=== PATIENT | male | born 1990 | race Caucasian/White ===

== ENCOUNTER 2020-09-23 12:07 | Emergency (ER) | payer BC, SELFPAY ==
--- NOTE | ~2020-09-23 | XR_ITS ---
XR abdomen/kub 1V DATE: 09/23/2020 13:31 INDICATION: Abdominal bloating, umbilical pressure. Cramping. Diarrhea. TECHNIQUE: 2 supine AP views COMPARISON: None FINDINGS: There is gaseous distention of a dilated loop of proximal small bowel overlying the left mi d to upper abdomen, which may be due to adynamic ileus or small bowel obstruction. There is gaseous d istention of the stomach. The psoas shadows are intact. No visceromegaly or significant abnormal calcification is identified. IMPRESSION: Dilated proximal small bowel, which may be due to adynamic ileus or small bowel obstructi on. Consider CT abdomen pelvis examination Reviewed, dictated and finalized at [facility]. Reviewed, dictated and finalized at [facility]. IMPRESSION: Dilated proximal small bowel, which may be due to adynamic ileus or small bowel obstruction. Consider CT abdomen pelvis examination
--- NOTE | ~2020-09-23 | CT_ITS ---
EXAMINATION: CT abdomen pelvis w con DATE: 09/23/2020 13:55 INDICATION: Dilated small bowel suspicious for obstruction on prior KUB. TECHNIQUE: Computed tomography (CT) of the abdomen and pelvis was performed with 100 mL Omnipaque-350 intravenous contrast. Automated exposure control and iterative reconstruction technique were employe d. The dose-length product was 531.08 mGy-cm. COMPARISON: None FINDINGS: Lung bases are clear. Heart size is normal. No pericardial or pleural effusion. Liver, gallbladder, p ancreas, bilateral adrenal glands and kidneys are normal. Borderline splenomegaly measuring 13.4 cm i n maximal length. Normal appendix. Fluid throughout the proximal to mid colon consistent with diarrhe a. There are few dilated loops of proximal jejunum measuring up to 4.2 cm in maximal diameter. There is gradual decrease in caliber of the small bowel in the mid jejunum without a discrete transition po int to suggest obstruction. Bladder is normal. No free intraperitoneal gas or fluid. No pathologicall y enlarged abdominal or pelvic lymphadenopathy. Bones are unremarkable. IMPRESSION: 1. Mild dilation of a few loops of proximal jejunum which gradually decreases to normal caliber with no discrete transition point and favor ileus over early or partial small bowel obstruction. 2. Fluid-filled large and small bowel consistent with diarrhea. Correlate clinically for gastroenteri tis. 2. Nonspecific borderline splenomegaly. Reviewed, dictated and finalized at [facility]. IMPRESSION: 1. Mild dilation of a few loops of proximal jejunum which gradually decreases t o normal caliber with no discrete transition point and favor ileus over early o r partial small bowel obstruction. 2. Fluid-filled large and small bowel consistent with diarrhea. Correlate clini rancho for gastroenteritis. 2. Nonspecific borderline splenomegaly.
[2020-09-23 12:10] VITALS: BP 124/80; PULSE 121; RESP 18; TEMP 36.7; O2SAT 95
[2020-09-23 12:27] LABS: Basophils Percent Auto 0.4 % (0.2-1.2); Eosinophils Percent Auto 0.1 % (0-4.4); Hematocrit 45.4 % (42.0-52.0); Hemoglobin 15.5 g/dL (14.0-18.0); Immature Granulocyte Absolute 0.01 K/mm3 (0.00-0.031); Immature Granulocyte Percent A 0.1 % (0-0.5); Lymphocytes Absolute Auto 0.43 K/mm3 (0.9-3.2); Lymphocytes Percent Auto 5.3 % (18.3-44.2); Mean Corpuscular HGB Conc 34.1 g/dl (32-36); Mean Corpuscular Hemoglobin 27.5 pg (26-34); Mean Corpuscular Volume 80.5 fl (80-100); Mean Platelet Volume 10.5 fl (7.4-10.4); Monocytes Absolute Auto 0.6 K/mm3 (0.1-0.6); Monocytes Percent Auto 7.5 % (2.6-8.5); Neutrophils Percent Auto 86.6 % (45.5-73.1); Platelet Count Result 190 k/mm3 (150-375); Red Blood Count 5.64 M/mm3 (4.6-6.20); Red Cell Distribution Width 12.5 % (11.5-14.5); White Blood Count 8.1 K/mm3 (4.5-10.0)
[2020-09-23 12:37] LABS: Alanine Aminotransferase 19 U/L (4-50); Albumin Level 4.3 g/dL (3.5-5.1); Alkaline Phosphatase 57 U/L (38-126); Anion Gap 10 mmol/L (8-16); Aspartate Amino Transferase 23 U/L (17-59); Bilirubin,Total 0.4 mg/dL (0.2-1.3); Blood Urea Nitrogen 14 mg/dL (9-20); Calcium 8.7 mg/dL (8.4-10.2); Carbon Dioxide 22 mmol/L (22-30); Chloride 103 mmol/L (98-107); Estimated CRCL calculation 95 ml/min; Estimated Glomerular Filt Rate > 60; Glucose 120 mg/dL (75-110); Lipase 95 U/L (23-300); Potassium 3.9 mmol/L (3.4-5.0); Sodium 135 mmol/L (137-145)
--- NOTE | 2020-09-23 13:07 | ED.NAVMDI ---
HPI - Nausea/Vomiting/Diarrhea General Chief complaint: Nausea/Vomiting/Diarrhea Stated complaint: n/v/d Time Seen by Provider: 09/23/20 12:56 History of Present Illness HPI Narrative: 30 yo male w/ h/o anxiety presents to the ED for nausea, vomiting, and diarrhea. The symptoms started 4 days ago. He was initially having some abdominal cramping, this has mostly resolved. Yesterday thought he was doing better. Today he vomited agian and the was a small amount of bright red blood. No dark or bloody stools. No weakness, numbness, CP, SOB, dizziness. Related Data Home Medications Medication Instructions Recorded Confirmed escitalopram oxalate mg 09/23/20 Allergies Allergy/AdvReac Type Severity Reaction Status Date / Time No Known Allergies Allergy Verified 09/23/20 13:36 Review of Systems Review of Systems: All systems reviewed & are unremarkable except as noted in HPI and below Constitutional: Constitutional: Reports chills, Reports fever(s) (subjective) and Denies weakness Eyes: Eyes: Reports no additional eye complaints ENT: Reports system reviewed and no additional complaints, except as documented Cardiovascular: Cardiovascular: Denies chest pain Respiratory: Respiratory: Denies dyspnea Gastrointestinal: Gastrointestinal: Reports as per HPI Genitourinary: Genitourinary: Reports no additional male genitourinary complaints Neurologic: Reports as per HPI Psychiatric: Psychiatric: Reports anxiety [facility] Past Medical History Medical History Anxiety Social History Social History Gender identity (if verbalized by the patient): Male Exam Const: General: healthy appearing, no acute distress and alert Orientation/consciousness: patient oriented x3 HENMT: Head: normal to inspection Neck: Neck: normal visual inspection Resp: Effort & Inspection: normal respiratory effort Auscultation: clear to auscultation bilaterally, no rales, no rhonchi and no wheezes Cardio: Jugular venous distension: no JVD Rate: regular rate Rhythm: regular rhythm Heart sounds: no murmurs GI: Inspection: non-distended GI Palp: Yes Soft to palpation and No Tenderness to palpation present (GI) Skin: General skin exam: normal color Neuro: General: patient oriented x3 and moves all extremities Speech: normal speech Extrem: General: no edema Psych: Appearance: well kempt Affect: normal affect Course Vital Signs Vital signs: Vital Signs Temperature 36.7 C 09/23/20 12:10 Pulse Rate 121 H 09/23/20 12:10 Respiratory Rate 18 09/23/20 12:10 Blood Pressure 124/80 09/23/20 12:10 Pulse Oximetry 95 09/23/20 12:10 Temperature 36.7 C 09/23/20 12:10 Pulse Rate 104 H 09/23/20 14:27 Respiratory Rate 20 09/23/20 14:27 Blood Pressure 127/59 L 09/23/20 14:27 Pulse Oximetry 94 09/23/20 14:27 MDM - Nausea/Vomiting/Diarrhea MDM Narrative Medical decision making narrative: Non specific findings on KUB. CT suggestive of gastroenteritis with an ileus. Tolerating PO and feeling better after treatment. H/H stable. Blood was most likely due to forceful vomiting. Differential Diagnosis Differential diagnosis: Likely food poisoning, gastroenteritis, dehydration and other (IBS, adarsh spring tear, gastritis) Medical Records Attestation: I reviewed the patient's medical records. Lab Data Attestation: I reviewed the patient's lab results. Result diagrams: 09/23/20 12:18 09/23/20 12:18 Labs: Lab Results 09/23/20 09/23/20 09/23/20 Range/Units 12:18 12:18 12:55 WBC 8.1 (4.5-10.0) K/mm3 RBC 5.64 (4.6-6.20) M/mm3 Hgb 15.5 (14.0-18.0) g/dL Hct 45.4 (42.0-52.0) % MCV 80.5 (80-100) fl MCH 27.5 (26-34) pg MCHC 34.1 (32-36) g/dl RDW 12.5 (11.5-14.5) % Plt Count 190 (150-375) k/mm3 MPV 10.5 H (7.4-10.4) fl
[2020-09-23 13:19] LABS: Add Urine Microscopic? YES; Appearance Urine Clear (Clear); Bilirubin Urine Negative (Negative); Blood Urine Negative (Negative); Color Urine Yellow (Yellow); Glucose Urine UA Negative (Negative); Ketones Urine Negative (Negative); Leukocyte Esterase Ur Negative LEU/UL (Negative); Mucus Urine Rare /lpf; Nitrate Urine Negative (Negative); Protein Urine 1+ mg/dL (Negative); RBC Urine 0-2 /hpf (0-2); Urobilinogen Urine Negative mg/dL (<2.0); WBC Urine 0-3 /hpf
[2020-09-23 13:39] VITALS: BP 113/60; BP 117/78; BP 126/69; PULSE 109; PULSE 115; PULSE 120
[2020-09-23] MEDS: SODIUM CHLORIDE 0.9% IV 1,000 ML 999 ML IV CONT (13:46)
[2020-09-23] MEDS: ONDANSETRON INJ 4 MG/2 ML VIAL IV PUSH (13:46)
[2020-09-23] MEDS: METOCLOPRAMIDE HCL INJ 10 MG/2 ML VIAL IV PUSH (14:25)
[2020-09-23 14:27] VITALS: BP 127/59; PULSE 104; RESP 20; O2SAT 94
== END 2020-09-23 15:48 | disposition home or self-care (01) ==
PROVIDERS: Emergency Medicine; Emergency Provider Emergency Medicine; PCP Internal Medicine
DX: K56.7 Ileus, unspecified (principal)
CPT/HCPCS: 36415; 74018; 74177; 80053; 81001; 83690; 85025; 96361; 96374; 96375; 99284; J2405; J2765; J7030; Q9967

== ENCOUNTER 2023-04-11 17:09 | Emergency (ER) | payer BC, SELFPAY ==
[2023-04-11 17:21] VITALS: BP 141/80; PULSE 83; RESP 16; TEMP 36.4; O2SAT 100
--- NOTE | 2023-04-11 17:22 | ED.URI ---
HPI - URI/Sore Throat General Chief Complaint: Upper Respiratory Infection Stated Complaint: FEVER/SINUS PAIN/SORE THROAT History of Present Illness HPI Narrative: 33 y/o male presented for c/o sinus congestion, headache and sore throat for 3 days. States at the onset he had fever up to 100. Denies sob, wheezing, n/v/d. Symptoms improve temporarily with ibuprofen and antihistamine. Tested covid negative x2 since onset. Related Data Allergies Allergy/AdvReac Type Severity Reaction Status Date / Time montelukast [From Singulair] Allergy Mild Hallucinati Verified 04/11/23 17:19 ng Review of Systems Review of Systems: CONSTITUTIONAL: reports fever, chills, sweats. EYES: Denies visual changes, redness, or discharge. ENT: reports sore throat, rhinorrhea, congestion, denies otalgia. CARDIOVASCULAR: Denies chest pain, palpitations, or edema. RESPIRATORY: Denies dyspnea. GASTROINTESTINAL: Denies abdominal pain, nausea, vomiting, or diarrhea. SKIN: Denies rash, itching, or wounds. MUSCULOSKELETAL: Denies back pain, joint pain, or myalgia. 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 EYES: conjunctivae clear ENT: Mucous membranes moist. TMs pearly diop with normal light reflex bilaterally; no tragal tenderness. Oropharynx mildly erythematous without lesions. Tonsils 1+ and without exudate. No drooling, no hoarseness, no trismus, uvula midline. No tripod positioning, hot potato voice, or soft palate swelling. NECK: Supple. No lymphadenopathy CHEST: Clear to auscultation, breath sounds equal. No respiratory distress, speaks in full sentences. HEART: Regular rate and rhythm. No murmur heard. SKIN: Warm, dry, no rash. NEURO: Alert and oriented x3. Course Course Emergency Course: Patient is aware of diagnosis, understands and agrees to treatment plan. Anticipatory guidance given. Patient agrees to follow-up as directed and is aware of reasons to seek care at the emergency department. Portions of this record may have been created with voice recognition software Level of Care: Express Care Visit MDM - URI/Sore Throat MDM Narrative Medical decision making narrative: POS strep result reviewed with pt. Advise supportive treatments. Patient is appropriate for outpatient treatment and follow-up. Differential Diagnosis Differential diagnosis: Likely upper respiratory infection, viral infection and pharyngitis Discharge Plan Discharge Clinical Impression: Strep pharyngitis Patient Disposition: Home, Self-Care Condition: Stable Instructions: Antibiotic Form, Strep Throat (ED) Additional Instructions: - Take the antibiotic as directed. Fever and sore throat typically resolve within one to three days. Most patients can return to work, after 12 to 24 hours of antibiotic therapy, provided you are fever free and otherwise well. -Eat and drink things that are easy to swallow, like soft foods, cool liquids, tea with honey, or popsicles . -Salt water gargles and/or may use topical anesthetic ( Chloraseptic spray) or lozenges to relieve dryness or throat pain -Alternate Tylenol and ibuprofen as needed for pain and fever as directed. -Frequent hand washing or hand fire supervisor is one of the best ways to pre
== END 2023-04-11 17:38 | disposition home or self-care (01) ==
PROVIDERS: Emergency Provider Nurse Practitioner Family; PCP Internal Medicine
DX: J02.0 Streptococcal pharyngitis (principal); F41.9 Anxiety disorder, unspecified
CPT/HCPCS: 87804; 87880; 99213; G0463

== ENCOUNTER 2023-06-12 08:30 | Outpatient (CLI) | payer BC, SELFPAY ==
[2023-06-12 17:52] LABS: Basophils Percent Auto 0.6 % (0.2-1.2); Eosinophils Absolute Auto 0.1 K/mm3 (0-0.3); Eosinophils Percent Auto 1.9 % (0-4.4); Hematocrit 43.3 % (42.0-52.0); Hemoglobin 13.5 g/dL (14.0-18.0); Immature Granulocyte Absolute 0.02 K/mm3 (0.00-0.031); Immature Granulocyte Percent A 0.4 % (0-0.5); Lymphocytes Absolute Auto 1.19 K/mm3 (0.9-3.2); Mean Corpuscular HGB Conc 31.2 g/dl (32-36); Mean Corpuscular Hemoglobin 26.9 pg (26-34); Mean Corpuscular Volume 86.3 fl (80-100); Mean Platelet Volume 10.8 fl (7.4-10.4); Monocytes Absolute Auto 0.4 K/mm3 (0.1-0.6); Monocytes Percent Auto 6.7 % (2.6-8.5); Neutrophils Absolute Auto 3.7 K/mm3 (1.3-6.7); Neutrophils Percent Auto 68.4 % (45.5-73.1); Platelet Count Result 257 k/mm3 (150-375); Red Blood Count 5.02 M/mm3 (4.6-6.20); Red Cell Distribution Width 13.1 % (11.5-14.5); White Blood Count 5.4 K/mm3 (4.5-10.0)
[2023-06-12 19:12] LABS: Vitamin D 25 Hydroxy 44.4 ng/mL
[2023-06-12 19:17] LABS: Anion Gap 10 mmol/L (8-16); Bilirubin,Total 0.5 mg/dL (0.2-1.3); Blood Urea Nitrogen 17 mg/dL (9-20); Carbon Dioxide 28 mmol/L (22-30); Chloride 102 mmol/L (98-107); Estimated Glomerular Filt Rate > 60; Glucose 71 mg/dL (65-110); Potassium 4.3 mmol/L (3.4-5.0); Sodium 140 mmol/L (137-145)
[2023-06-12 19:18] LABS: Alanine Aminotransferase 44 U/L (6-50); Albumin Level 4.3 g/dL (3.5-5.1); Alkaline Phosphatase 59 U/L (38-126); Aspartate Amino Transferase 38 U/L (17-59); Cholesterol 229 mg/dL (0-200); HDL Direct 37 mg/dL; Triglycerides 199 mg/dL (<150)
[2023-06-12 19:29] LABS: LDL Cholesterol Direct 137 mg/dL
[2023-06-14 15:00] LABS: Apolipoprotein B 124 mg/dL (<90)
== END 2023-06-12 08:31 | disposition home or self-care (01) ==
LOC: ANHGOSHLAB 08:31
PROVIDERS: PCP Internal Medicine; Visit Provider Clinical Nurse Specialist
DX: E78.5 Hyperlipidemia, unspecified (principal); Z13.228 Encounter for screening for other metabolic disorders; E55.9 Vitamin D deficiency, unspecified; F41.9 Anxiety disorder, unspecified
CPT/HCPCS: 36415; 80053; 80061; 82172; 82306; 84443; 85025

== ENCOUNTER 2024-09-19 18:09 | Emergency (ER) | payer OTHER, BC, SELFPAY ==
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
[2024-09-19 18:13] VITALS: BP 119/79; PULSE 102; RESP 16; TEMP 36.8; O2SAT 97
--- OUTSIDE RECORDS SUMMARY | 2024-09-19 18:13 | XMS_ITS | Clinical Summary ---
Author Organization [facility] Address [address] [place] [address] Care Team Providers Care General Ii Farmworker Name Role Phone Rob Mcconnell MD Primary Care Provider [phone] Source Comments [facility],non-owned Affiliates and Associated Physician Practices is amultiple site organization consisting of ambulatory clinics and hospital sitesin [place], [place], [place] and [place]. This disclosure is being madepursuant to the Care Everywhere program and may not contain all information available regarding this patient. Last updated 18.[facility] Allergies Active Allergy Reactions Criticality Noted Date Comments Penicillins Vomiting 09/01/2016 Medications * Be aware that medications may not be up to date on this document. Alwaysverify current medications with the patient. No known medications Social History Tobacco Use Types Packs/Day Years Used Date Smoking Tobacco: Never Smokeless Tobacco: Never Sex and Gender Information Value Date Recorded Sex Assigned at Not on file Legal Sex Male 10:44 AM CDT Gender Identity Not on file Sexual Orientation Not on file Last Filed Vital Signs Vital Sign Reading Time Taken Comments Blood Pressure 112/76 06/12/2019 2:06 PM PLATE MAKER Pulse 110 06/12/2019 2:06 PM PLATE MAKER Temperature 38 C (100.4 F) 06/12/2019 2:06 PM PLATE MAKER Respiratory Rate 18 06/12/2019 2:06 PM PLATE MAKER Oxygen Saturation 96% 06/12/2019 2:06 PM PLATE MAKER Inhaled Oxygen Concentration - - Weight 87.5 kg (193 lb) 06/12/2019 2:06 PM PLATE MAKER Height 174 cm (5' 8.5 ) 06/12/2019 2:06 PM PLATE MAKER Body Mass Index 28.92 06/12/2019 2:06 PM PLATE MAKER Plan of Treatment Health Maintenance Due Date Last Done Comments HIV SCREENING 2004 HEPATITIS C SCREENING 03/18/2007 DTAP/TDAP/TD VACCINES (1 - Tdap) 2008 HEPATITIS B VACCINE (1 of 3 - 19+ 3-dose series) 2008 COVID-19 VACCINE (1 - 2023-2 5 season) 2024 DEPRESSION SCREENING 06/03/2024 INFLUENZA VACCINE (Season Ended) 2025 ZOSTER VACCINE (1 of 2) 2039 HIB VACCINE Aged Out No longer eligi ble based on patient's age to complete this topic HPV VACCINE Aged Out No longer eligi ble based on patient's age to complete this topic MENINGOCOCCAL (Group B) VACC INE SHARED DECISION-MAKING Aged Out No longer eligibl e based on patient's age to complete this topic MENINGOCOCCAL GROUPS A/C/Y/W VACCINE Aged Out No longer eligible b ased on patient's age to complete this topic PNEUMOCOCCAL VACCINE Aged Out No long er eligible based on patient's age to complete this topic Insurance [employer] Care Teams General Ii Farmworker Relationship Specialty Start Date End Date Rob Mcconnell MD PCP - General Internal Medicine 09/01/16
--- OUTSIDE RECORDS SUMMARY | 2024-09-19 18:13 | XMS_ITS | Continuity of Care Document ---
Author Organization [facility] Address [address] [place] [address] Phone Care Team Providers Care Wool Merchant Name Role Phone Inder Marquis MD Unavailable Unavailable Allergies, Adverse Reactions, Alerts Substance Reaction Status Criticality PENICILLIN Gastric Distress Active No Informat ion Medications Medication Instructions Dosage Effective Dates (start - stop) Status Comments No Drug Therapy Prescribed Procedures Procedure Date OFFICE/OUTPATIENT VISIT, [facility] IAAD EIA HEP B SURF AG HEPATITIS C ANTIBODY; HIV-1 Antigen, W/HIV-1 & HIV-2 Antibody, Single Re Advance Directives Directive Yes / No Effective Date File Name No Information Encounters Encounter Description Practice Location Reason(s) For Visit Diagnoses Date Provider Providers Copied on Encounter [facility] , [address], [place], [place], [id number], tel:[phone] Urgent Care No Information [facility]. [address], [place], [place], [id number], . tel:[phone] OFFICE/OUTPAT IENT VISIT, [facility] , [address], [place], [place], [address], tel:[phone] Urgent Care physical (chief complaint) Encounter for other administrative examinations No Information Family History Family Member Type Diagnosis Age At Onset No Information Payers Payer name Insurance type Covered alliance party ID Authoriza tion(s) [facility] CI [id number] Social History Type Description Quantity Date Captured Comments Sex Male Smoking Status No Information Chief Complaint And Reason For Visit No Information Reason For Referral Reason For Referral No Information History Of Present Illness Encounter Date Complaint History Of Prese nt Illness physical Men's preventive visit. here for wrestling physical Functional Status Date Functional Assessmen t No Information Medications Administered Medication Instructions Dosage Effective Dates (start - stop) Status Comments No Drug Therapy Prescribed Instructions Date Instruction Additional Infor mation No Information Assessments Type Assessment Date No Information Patient Care Teams Name Effective Dates (start - stop) Status Members No Information
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
--- OUTSIDE RECORDS SUMMARY | 2024-09-19 21:30 | XMS_ITS | Clinical Summary ---
Author Organization [facility] Address [address] [place] [address] Care Team Providers Care Coal Digger Name Role Phone Rob Mcconnell MD Primary Care Provider [phone] Source Comments [facility],non-owned Affiliates and Associated Physician Practices is amultiple site organization consisting of ambulatory clinics and hospital sitesin [place], [place], [place] and [place]. This disclosure is being madepursuant to the Care Everywhere program and may not contain all information available regarding this patient. Last updated 18.[facility] Allergies Active Allergy Reactions Criticality Noted Date [...] Comments Blood Pressure 112/76 06/12/2019 2:06 PM POURER OFF Pulse 110 06/12/2019 2:06 PM POURER OFF Temperature 38 C (100.4 F) 06/12/2019 2:06 PM POURER OFF Respiratory Rate 18 06/12/2019 2:06 PM POURER OFF Oxygen Saturation 96% 06/12/2019 2:06 PM POURER OFF Inhaled Oxygen Concentration - - Weight 87.5 kg (193 lb) 06/12/2019 2:06 PM POURER OFF Height 174 cm (5' 8.5 ) 06/12/2019 2:06 PM POURER OFF Body Mass Index 28.92 06/12/2019 2:06 PM POURER OFF Plan of Treatment Health Maintenance Due Date [...] complete this topic Insurance [employer] Care Teams Coal Digger Relationship Specialty Start Date End Date Rob Mcconnell MD PCP - General Internal Medicine 09/01/16
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
[2024-09-19 22:14] VITALS: BP 126/80; PULSE 92; RESP 16; TEMP 36.7; O2SAT 98
== END 2024-09-19 22:14 | disposition home or self-care (01) ==
LOC: ANHED 21:28
PROVIDERS: Emergency Provider Emergency Medicine; PCP Internal Medicine
DX: S09.90XA Unspecified injury of head, initial encounter (principal); S16.1XXA Strain of muscle, fascia and tendon at neck level, initial encounter; V89.2XXA Person injured in unspecified motor-vehicle accident, traffic, initial encounter; W22.11XA Striking against or struck by driver side automobile airbag, initial encounter
CPT/HCPCS: 70450; 72125; 99284

== ENCOUNTER 2024-09-21 12:27 | Outpatient (CLI) | payer BC, SELFPAY ==
--- NOTE | ~2024-09-21 | XR_ITS ---
Clinical Indication: Chest pain PA and lateral views of the chest: Comparison: None Findings: The lungs are clear, without evidence of focal consolidation or pleural effusion. Cardiome diastinal silhouette is within normal limits. Bones and soft tissues are unremarkable. Impression: Normal chest. Reviewed, dictated and finalized at location . Impression: Normal chest.
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
== END 2024-09-21 12:28 | disposition home or self-care (01) ==
LOC: MICIMG 12:31
PROVIDERS: PCP Internal Medicine; Visit Provider Chiropractor
DX: M54.50 Low back pain, unspecified (principal); R07.9 Chest pain, unspecified
CPT/HCPCS: 71046; 72110

== ENCOUNTER 2025-04-01 15:11 | Outpatient (CLI) | payer BC, SELFPAY ==
--- NOTE | ~2025-04-01 | XR_ITS ---
EXAMINATION: XR chest 2V, 04/01/2025 15:20 CDT HISTORY: Acute cough x 6 weeks, rattling in chest and sob COMPARISON: No comparisons available. Technique: 2 views obtained. Findings: The lungs are clear, no effusion. No pneumothorax. Heart is normal size. Mediastinal and hilar contours are within normal limits. Bony thorax no acute abnormality. Impression: No acute cardiopulmonary abnormality. Reviewed, dictated and finalized at location P. Impression: No acute cardiopulmonary abnormality.
== END 2025-04-01 15:12 | disposition home or self-care (01) ==
LOC: GOSHIMG 15:12
PROVIDERS: PCP Internal Medicine; Visit Provider Clinical Nurse Specialist
DX: R05.1 Acute cough (principal)
CPT/HCPCS: 71046

== ENCOUNTER 2025-04-12 16:01 | Emergency (ER) | payer BC, SELFPAY ==
--- NOTE | ~2025-04-12 | XR_ITS ---
EXAMINATION: XR chest 2V DATE: 04/12/2025 16:49 INDICATION: Chest congestion TECHNIQUE: PA and lateral views of the chest were obtained. COMPARISON: Chest radiograph dated 04/01/2025 FINDINGS: The lungs remain clear with no focal airspace opacities, pulmonary edema, pleural effusion or pneumothorax. The cardiomediastinal silhouette is normal. Mild thoracic spondylosis with chronic mild anterior wedging of a lower thoracic vertebral body, likely T11. IMPRESSION: 1. No acute cardiopulmonary disease. Reviewed, dictated and finalized at location A. ITY INTERN
[2025-04-12 16:11] VITALS: BP 148/90; PULSE 94; RESP 15; TEMP 36.2; O2SAT 98
--- NOTE | 2025-04-12 16:59 | ED.URI ---
HPI - URI/Sore Throat General Chief Complaint: Upper Respiratory Infection Stated Complaint: Chest Congestion Time Seen by Provider: 04/12/25 16:35 Source: patient, RN notes reviewed and old records reviewed Mode of arrival: ambulatory Limitations: no limitations History of Present Illness HPI Narrative: 35 year old male who presents to [facility] with complaints of continued feelings of chest congestion which has been going on for about 8 weeks.He reports that he has some mild pressure in his left chest since and at times it goes into his shoulder. Patient denies any nausea, any diaphoresis or any sharp pain in his chest describes as soreness and it is reproduced on palpation of left pectoral region. He states that he was given a round of antibiotics and steroids on 03/10/2025 and he completed all doses of medication. Patient denies any shortness of breath at rest has noted some with exertion, has no tachypnea and SAO2 98% on room air. Patient reports no fevers, chills or sweats and has been taking some Mucinex. MD elicited complaint: cough and other (chest congestion with some pain left pectoral area) Pertinent past history: other (recently treated in March for chest congestion with steroids and antibiotic) Consistency: intermittent Severity: mild Pain scale (0-10): 3 Description of mucous: clear Able to tolerate fluids by mouth: Yes Treatments prior to arrival: other (Mucinex, completed antibiotic and steroid in ) Related Data Home Medications ?Medication ?Instructions ?Recorded ?Confirmed ?Last Taken ?Type cholecalciferol (vitamin D3) 25 25 mcg PO DAILY 06/12/23 04/12/25 Unknown History mcg (1,000 unit) capsule Allergies Allergy/AdvReac Type Severity Reaction Status Date / Time montelukast (From Singulair) Allergy Mild Hallucinati Verified 04/12/25 16:12 ng Review of Systems Review of Systems: CONSTITUTIONAL: Denies malaise, chills, sweats, or fever. EYES: Denies visual changes, redness, or discharge. ENT: Reports rhinorrhea, congestion, sinus pain, otalgia and sore throat. CARDIOVASCULAR: Denies chest pain, palpitations, or edema. reports some left pectoral muscle pain reproduced on palpation RESPIRATORY: Reports productive cough.? Denies dyspnea at rest some with exertion. GASTROINTESTINAL: Denies abdominal pain, nausea, vomiting, diarrhea SKIN: Denies rash or itching. MUSCULOSKELETAL: Denies myalgia. NEUROLOGIC: Denies headache. All systems reviewed & are unremarkable except as noted in HPI and below PMFSH Past Medical History Medical History Cyst Anxiety Social History Social History (Updated 04/14/25 @ 07:49 by Moni Henderson APRN) Social History: Caffeine- lots Alcohol intake: current Alcohol use details: 2 times monthly Substance use: never Substance use type: does not use Lack of Transportation: No Lack of Food: Never True Current Housing: I Have Housing Concerned About Future Housing: No Difficulty Paying Gas/Electric Bills: No Difficulty Paying for Meds: No Currently Unemployed: No Occupation/Education: occupation 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 There is no relevant family history pertinent to the presenting complaint Exam Narrative: GENERAL: Well-appearing, well-nourished, and in no acute distress. HEAD: Normocephalic EYES: PERRLA, conjunctivae clear ENT: Nares clear, turbinates edematous and erythematous, clear discharge. Mucous membranes moist. TM pearly diop with dull light reflex bilaterally; no tragal tenderness. Oropharynx erythematous without lesions. Tonsils not enlarged and without exudate, no drooling, no hoarseness, no trismus, uvula midline.mild post nasal drainage NECK: Supple. No lymphadenopathy CHEST: Clear to auscultation, breath sounds equal. No wheezing, rhonchi, rales, or stridor. No respiratory distress, speaks in full sentences.no tachypnea SAO2 98% on room air HEART: Regular rate and rhythm. No murmur heard. SKIN: Warm, dry, no rash. NEURO: Alert and oriented x3. PSYCH: Normal mood and affect Course Course Emergency Course: Patient is aware of diagnosis, understands and agrees to treatment plan.? Anticipatory guidance given.? Patient agrees to follow-up as directed and is aware of reasons to seek care at the emergency department. Portions of this record may have been created with voice recognition software Level of Care: Express Care Visit Vital Signs Vital signs: Vital Signs Oxygen Delivery Room Air 04/12/25 16:10 Temperature 36.2 C L 04/12/25 16:11 Pulse Rate 94 04/12/25 16:11 Respiratory Rate 15 04/12/25 16:11 Blood Pressure 148/90 H 04/12/25 16:11 Pulse Oximetry 98 04/12/25 16:11 Oxygen Delivery Room Air 04/12/25 16:10 Reviewed MDM - URI/Sore Throat MDM Narrative Medical decision making narrative: Differential diagnosis considered: Santos virus, strep pharyngitis, allergic rhinitis, upper respiratory tract infection, sinusitis, rhinosinusitis, nasopharyngitis. viral pharyngitis, otitis media, otitis externa, pneumonia, bronchitis, viral cough syndrome, viral syndrome, and influenza.? Exam findings show no acute concerns or changes; patient is non-toxic appearing and is in no distress.? Patient is appropriate for outpatient treatment and follow-up. Differential Diagnosis Differential diagnosis: Likely upper respiratory infection, viral infection, bronchitis and other (costochrondritis) Medical Records Attestation: I reviewed the patient's medical records. Lab Data Attestation: I reviewed the patient's lab results. Imaging Data Attestation: I personally reviewed and interpreted this imaging study as follows: My impression: no acute cardiopulmonary disease Radiologist's impression: [address] [address] XRay Report Signed Patient: Meek Arteaga : 1990 MR#: [id number] Age: 35 Acct:[id number] Loc: [facility] ADM Date: 04/12/[address]: Ordering Physician: Moni Henderson APRN Date of Service: 04/12/25 Procedure(s): XR chest 2V Accession Number(s): [id number] cc: FORENSIC PSYCHOLOGIST PHYSICIAN; Moni Henderson APRN~ EXAMINATION: XR chest 2V DATE: 04/12/2025 16:49 INDICATION: Chest congestion TECHNIQUE: PA and lateral views of the chest were obtained. COMPARISON: Chest radiograph dated 04/01/2025 FINDINGS: The lungs remain clear with no focal airspace opacities, pulmonary edema, pleural effusion or pneumothorax. The cardiomediastinal silhouette is normal. Mild thoracic spondylosis with chronic mild anterior wedging of a lower thoracic vertebral body, likely T11. IMPRESSION: 1. No acute cardiopulmonary disease. Reviewed, dictated and finalized at location A. ER TENDER Please be advised this is a medical document. It is intended for [id number] communication. It is written in medical language and may contain unfamiliar abbreviations or verbiage. Medical documents are intended to carry relevant information, facts as evident, and the clinical opinion of the practitioner at the time of the encounter. This report may have been done utilizing a voice recognition system. Attempts have been made to correct errors. However, there may be uncorrected grammatical, spelling, and recognition errors present. The file time of this note does not necessarily represent the time of service. Dictated By: Mauricio Villalta MD 04/12/25 1966 Signed By: <Electronically signed by Mauricio Villalta MD in OV> Critical Care Time Critical Care Time Critical Care Time: No Discharge Plan Discharge Clinical Impression: Costochondritis Patient Disposition: Home Condition: Stable Instructions: Antibiotic Form, Costochondritis (ED) Additional Instructions: Tylenol for lesser pain Ibuprofen regularly for the next 2-3 days for the inflammation recommend 600 mg 3 times daily with food for the next 2 days coughing deep breathing exercises every 2 hours while awake Follow-up with PCP if further problems or concerns Ice to the area 20-30 minutes 4-6 times a day Prednisone 40 mg daily with food start tomorrow morning If your symptoms persist, change or worsen significantly before you can contact your personal physician then please, without delay, go to the emergency department for further evaluation. Follow-up with PCP in 7-10 days or sooner if needed Follow up with PCP soon in regards to your blood pressure which is elevated above threshold for referral. Blood pressure above 120/80 may indicate pre-hypertension. 148/90 Continue your inhaler if any feelings of dyspnea Patient Language: Tajik Prescriptions: New prednisone 20 mg tablet 40 mg PO DAILY 5 Days Qty: 10 0RF Rx Instructions: take with food ibuprofen 600 mg tablet 600 mg PO QID PRN (Reason: fever or pain) Qty: 30 0RF No Action cholecalciferol (vitamin D3) 25 mcg (1,000 unit) capsule 25 mcg PO DAILY albuterol sulfate 90 mcg/actuation HFA aerosol inhaler 1 puff inhalation Q4H PRN (Reason: shortness of breath or wheezing) Qty: 8.5 0RF (DME) Autopap See Rx Instructions .Route .MEDSUPPLY Qty: 1 0RF Rx Instructions: As directed escitalopram oxalate [Lexapro] 10 mg tablet 10 mg PO DAILY Qty: 90 3RF Follow-up/Referrals: PHYSICIAN,FORENSIC PSYCHOLOGIST [Primary Care Provider, Internal Medicine] Time of Disposition: 17:03 Quality Edel Coma Scale Eyes: Open Verbal: Oriented and Alert Motor: Follows Commands Edel Coma Total Score: 15
== END 2025-04-12 17:10 | disposition home or self-care (01) ==
PROVIDERS: Emergency Provider Registered Nurse
DX: M94.0 Chondrocostal junction syndrome [Tietze] (principal); F41.9 Anxiety disorder, unspecified
CPT/HCPCS: 71046; 99213; G0463